=== PATIENT | male | born 1945 | race Caucasian/White ===

== ENCOUNTER 2016-10-15 10:18 | Emergency (ER) | payer BC, MEDICARE ==
[2016-10-15 11:00] VITALS: BP 111/93
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
--- NOTE | 2016-10-15 11:50 | RAD ---
Indication: Left foot pain. 3 views of left foot are reviewed. There is no definite fracture or dislocation. No other bone or joint abnormality is noted. IMPRESSION: No definite fracture of the left foot is noted.
== END 2016-10-15 12:26 | disposition home or self-care (01) ==
LOC: UCCORT 10:18
DX: S90.32XA Contusion of left foot, initial encounter (principal); V88.8XXA Person injured in other specified noncollision transport accidents involving motor vehicle, nontraffic, initial encounter; Y93.9 Activity, unspecified; Y92.9 Unspecified place or not applicable; Y99.9 Unspecified external cause status; I51.9 Heart disease, unspecified; Z95.1 Presence of aortocoronary bypass graft; Z87.891 Personal history of nicotine dependence
CPT/HCPCS: 99202; G0463

== ENCOUNTER 2018-02-05 09:25 | Emergency (ER) | payer OTHER ==
[2018-02-05 09:45] VITALS: BP 178/90
--- NOTE | 2018-02-05 10:17 | UC ---
Abdominal Pain Male HPI - HPI Summary HPI Summary: Vomiting and diarrhea over 24 hours with hx of CABG at [facility] and [facility]. He is on aspirin alone. No hematemesis or melena. There is associated diffuse abd pain. - History of Current Complaint Chief Complaint: UCGI Stated Complaint: HEARTBURN,VOMITTING Time Seen by Provider: 02/05/18 09:44 Hx Obtained From: Patient Onset/Duration: Gradual Onset, Lasting Days Timing: Constant Severity Initially: Moderate Severity Currently: Moderate Pain Intensity: 7 Location: Diffuse Radiates: No Character: Aching Aggravating Factor(s): Nothing Alleviating Factor(s): Nothing Associated Signs And Symptoms: Positive: Decreased Appetite, Nausea, Vomiting, Diarrhea. Negative: Diaphoresis, Fever, Cough, Chest Pain, Constipation, Blood in Stool - Allergies/Home Medications Allergies/Adverse Reactions: Allergies Allergy/AdvReac Type Severity Reaction Status Date / Time No Known Allergies Allergy Verified 02/05/18 09:45 Home Medications: Home Medications Famotidine [Pepcid] 20 mg PO DAILY 02/05/18 [History Confirmed 02/05/18] Ferrous Gluconate [Iron] 256 mg PO DAILY 02/05/18 [History Confirmed 02/05/18] Losartan Potassium 100 mg PO DAILY 02/05/18 [History Confirmed 02/05/18] Mometasone NASAL (NF) [Nasonex (NF)] 50 mcg NA DAILY 02/05/18 [History Confirmed 02/05/18] Tamsulosin CAP* [Flomax CAP*] 0.4 mg PO DAILY 02/05/18 [History Confirmed ] PMH/Surg Hx/FS Hx/Imm Hx Previously Healthy: No - PUD. CAD. - Surgical History Surgical History: Yes Surgery Procedure, Year, and Place: Cardiac Bypass 1992, pit[place]. back x 2, part of stomach removed d/t ulcers - Family History Known Family History: Positive: Cardiac Disease - Social History Alcohol Use: Daily Alcohol Amount: 1-2 Substance Use Type: None Smoking Status (MU): Former Smoker Have You Smoked in the Last Year: No When Did the Patient Quit Smoking/Using Tobacco: 1992 Review of Systems All Other Systems Reviewed And Are Negative: Yes Gastrointestinal: Positive: Abdominal Pain, Vomiting, Diarrhea Physical Exam Triage Information Reviewed: Yes Appearance: Pain Distress - Appears generally weak. Breathing quickly and deeply. Vital Signs: Initial Vital Signs Temp 98.8 F 02/05/18 09:39 Pulse 114 02/05/18 09:39 Resp 36 02/05/18 09:39 BP 178/90 02/05/18 09:39 Pulse Ox 100 02/05/18 09:39 Vital Signs Reviewed: Yes Eyes: Positive: Conjunctiva Clear. Negative: Conjunctiva Inflamed ENT: Positive: Normal ENT inspection, Pharynx normal Neck: Positive: Supple, Nontender, No Lymphadenopathy. Negative: Nuchal Rigidity Respiratory: Positive: Lungs clear, Normal breath sounds, No respiratory distress, No accessory muscle use. Negative: Respiratory distress, Decreased breath sounds, Accessory muscle use, Crackles, Rhonchi, Stridor, Wheezing Cardiovascular: Positive: No Murmur, Tachycardia Abdomen Description: Positive: No Organomegaly, Soft. Negative: Distended, Guarding Musculoskeletal: Positive: Strength Intact, ROM Intact, No Edema Neurological: Positive: Muscle Tone Normal, Fatigued Psychological: Positive: Age Appropriate Behavior Skin: Negative: Rashes Abd Pain Male Course/Dx - Course Course Of Treatment: Pt discussed with Glenys at [facility] who accepts pt but pt is refusing ambulance. We discussed how it is safer to transport that way to avoid complications that may occur in route like sudden worsening or syncope. He has hx of PUD and has diffuse pain and tachycardia and tachypnea. - Differential Dx/Clinical Impression Differential Diagnosis/HQI/PQRI: Abdominal Aortic Aneurysm, ACS, AMI, Appendicitis, Bowel Obstruction, Constipation, Diverticulitis, Ischemic Bowel, Pancreatitis, Ureteral Stone Provider Diagnosis: Abdominal pain, Tachycardia, Tachypnea, Vomiting and diarrhea Discharge - Sign-Out/Discharge Documenting (check all that apply): Patient Departure All imaging exams completed and their final reports reviewed: No Studies - Discharge Plan Condition: Guarded Disposition: TRANS HIGHER LVL OF CARE FAC Patient Education Materials: Acute Nausea and Vomiting (ED), Abdominal Pain (ED ), Tachycardia (ED) Referrals: Esa Kay MD [Primary Care Provider] - Additional Instructions: Go to the ED right from here. - Billing Disposition and Condition Condition: GUARDED Disposition: Trans Higher l of Care Fac
== END 2018-02-05 10:15 | disposition short-term general hospital (02) ==
LOC: UCCORT 09:25
DX: R10.9 Unspecified abdominal pain (principal); R00.0 Tachycardia, unspecified; R11.10 Vomiting, unspecified; R19.7 Diarrhea, unspecified; I25.10 Atherosclerotic heart disease of native coronary artery without angina pectoris; F17.210 Nicotine dependence, cigarettes, uncomplicated; K27.9 Peptic ulcer, site unspecified, unspecified as acute or chronic, without hemorrhage or perforation
CPT/HCPCS: 93005; 99212; G0463

== ENCOUNTER 2018-09-06 08:07 | Emergency (ER) | payer MEDICARE, OTHER ==
[2018-09-06 08:22] VITALS: BP 119/64
--- NOTE | 2018-09-06 08:40 | UC ---
Elbow Pain - HPI Summary HPI Summary: 73 yo male fell and landed on right elbow about a month ago still with pain hurts especially when he drives has to take his right hand off the steering wheel periodically he is right handed - History of Current Complaint Chief Complaint: UCUpperExtremity Stated Complaint: RT ELBOW INJURY Time Seen by Provider: 09/06/18 08:39 Hx Obtained From: Patient Onset/Duration: Weeks Severity Initially: Mild Severity Currently: Mild Pain Intensity: 2 Pain Scale Used: 0-10 Numeric Location Of Pain: Is Discrete @ Character: Sharp, Aching Aggravating Factor(s): Other - driving Alleviating Factor(s): Rest Associated Signs And Symptoms: Positive: Negative Body - Head: 1 - tender medially - Allergies/Home Medications Allergies/Adverse Reactions: Allergies Allergy/AdvReac Type Severity Reaction Status Date / Time No Known Allergies Allergy Verified 09/06/18 08:18 PMH/Surg Hx/FS Hx/Imm Hx Previously Healthy: Yes Endocrine History: Dyslipidemia Cardiovascular History: Hypertension, Myocardial Infarction - Surgical History Surgical History: Yes Surgery Procedure, Year, and Place[facility] part of stomach removed d/t ulcers - Family History Known Family History: Positive: Cardiac Disease - Social History Alcohol Use: Daily Alcohol Amount: 1-2 beers Substance Use Type: None Smoking Status (MU): Former Smoker Have You Smoked in the Last Year: No When Did the Patient Quit Smoking/Using Tobacco: 1992 Review of Systems All Other Systems Reviewed And Are Negative: Yes Constitutional: Positive: Negative Skin: Positive: Negative Eyes: Positive: Negative ENT: Positive: Negative Respiratory: Positive: Negative Cardiovascular: Positive: Negative Gastrointestinal: Positive: Negative Genitourinary: Positive: Negative Motor: Positive: Negative Neurovascular: Positive: Negative Musculoskeletal: Positive: Arthralgia - R elbow Neurological: Positive: Negative Psychological: Positive: Negative Physical Exam Triage Information Reviewed: Yes Appearance: Well-Appearing, No Pain Distress, Well-Nourished Vital Signs: Initial Vital Signs Temp 98.7 F 09/06/18 08:18 Pulse 96 09/06/18 08:18 Resp 19 09/06/18 08:18 BP 119/64 09/06/18 08:18 Pulse Ox 99 09/06/18 08:18 Vital Signs Reviewed: Yes Eyes: Positive: Conjunctiva Clear ENT: Positive: Hearing grossly normal. Negative: Nasal congestion, Nasal drainage, Hoarse voice Dental Exam: Normal Neck: Positive: Supple, Nontender Respiratory: Positive: Lungs clear, Normal breath sounds, No respiratory distress, No accessory muscle use Cardiovascular: Positive: RRR, No Murmur Abdomen Description: Positive: Nontender Musculoskeletal: Positive: No Edema, Other: - pain with full extgension Neurological: Positive: Alert Psychological Exam: Normal Skin Exam: Normal Diagnostics - Radiology No standard instances Radiology Interpretation Completed By: Radiologist Summary of Radiographic Findings: DYSTROPHIC CALCIFICATION OF THE SOFT TISSUES ALONG THE MEDIAL HUMERAL EPICONDYLE. NO ACUTE. OSSEOUS INJURY. IF SYMPTOMS PERSIST, RECOMMEND REPEAT IMAGIN Elbow Pain Course/Dx - Differential Dx/Diagnosis Provider Diagnosis: Contusion of right elbow Discharge - Sign-Out/Discharge Documenting (check all that apply): Patient Departure All imaging exams completed and their final reports reviewed: Yes - Discharge Plan Condition: Stable Disposition: HOME Patient Education Materials: Contusion in Adults (ED) Referrals: Alexis Archer MD [Medical Doctor] - 5 Days - Billing Disposition and Condition Condition: STABLE Disposition: Home
== END 2018-09-06 09:39 | disposition home or self-care (01) ==
LOC: UCCORT 08:07
DX: S50.01XA Contusion of right elbow, initial encounter (principal); W19.XXXA Unspecified fall, initial encounter; Y92.9 Unspecified place or not applicable; I25.2 Old myocardial infarction; I10 Essential (primary) hypertension; Z87.891 Personal history of nicotine dependence
CPT/HCPCS: 99212; G0463